=== PATIENT | female | born 1960 | race African-American/Black ===

== ENCOUNTER 2019-06-26 15:30 | Emergency (ER) | payer MEDICAID ==
[~2019-06-26] VITALS: Ht 157.5 cm; Wt 97.5 kg
--- NOTE | 2019-06-26 15:45 | NUR ---
patient came in to the er c/o "Have something on R side of head started tuesday NOT going away". On room air, breathing evenly and unlabored. connected to the monitor and pulse ox. Kept comfortable, will continue to monitor accordingly.
[2019-06-26] MEDS ORDERED: LABETALOL 20 MG/4 ML VIAL IV ONE (16:00)
[2019-06-26] MEDS ORDERED: LABETALOL HCL IV 100MG VIAL ONE (16:08)
[2019-06-26] MEDS ORDERED: OMEP20TA5 PO (16:08)
[2019-06-26 16:11] LABS: BASOPHILS # (AUTO) 0.1 /CMM (0.0-0.2); BASOPHILS % (AUTO) 0.6 % (0.0-2.0); EOSINOPHILS % (AUTO) 1.2 % (0.0-6.0); HEMATOCRIT 35 % (33-45); HEMOGLOBIN 11.5 g/dL (11.5-14.8); LYMPHOCYTES # (AUTO) 1.7 /CMM (0.8-4.8); LYMPHOCYTES % (AUTO) 13.5 % (20.0-44.0); MEAN CORPUSCULAR HGB CONC 33 g/dl (31.0-36.0); MEAN CORPUSCULAR VOLUME 85 fL (82-100); MONOCYTES # (AUTO) 0.8 /CMM (0.1-1.30); MONOCYTES % (AUTO) 6.7 % (2.0-12.0); NEUTROPHILS # (AUTO) 9.9 /CMM (1.8-8.9); PLATELET COUNT (AUTO) 216 /CMM (150-450); RED BLOOD CELL COUNT(AUTO) 4.15 MIL/uL (4.0-5.2); WHITE BLOOD COUNT (AUTO) 12.7 K/uL (4.3-11.0)
[2019-06-26 16:18] LABS: CALCIUM, SERUM 8.8 mg/dL (8.5-10.1); CREATININE 0.6 mg/dL (0.6-1.3); POTASSIUM 4.2 mmol/L (3.5-5.1)
[2019-06-26] MEDS ORDERED: IOHEXOL-350 100 ML VIAL IV ONE (17:14)
[2019-06-26] MEDS ORDERED: CT SWABBABLE VALVE TRANS SET 1 EA INFUS.SET MC ONE (17:15)
[2019-06-26] MEDS ORDERED: IV NS 0.9% 250 ML IV ONE (17:15)
[2019-06-26] MEDS ORDERED: IBUPROFEN 600 MG TABLET PO ONE (18:30)
[2019-06-26 18:38] VITALS: BP 140/81
--- NOTE | 2019-06-26 18:39 | NUR ---
Patient discharged to home in stable condition. Written and verbal after care instructions given. Patient verbalizes understanding of instruction.IV removed. Catheter intact and site benign. Pressure and 4x4 applied to site. No bleeding noted.
== END 2019-06-26 18:39 | disposition home or self-care (01) ==
LOC: ER 15:37
DX: R51 Headache (principal); R42 Dizziness and giddiness; I51.7 Cardiomegaly; K21.9 Gastro-esophageal reflux disease without esophagitis; Z60.2 Problems related to living alone; Z79.899 Other long term (current) drug therapy
CPT/HCPCS: 36415; 70450; 70496; 71045; 80048; 85025; 85730; 93005; 99285; J3490; J7050; Q9967

== ENCOUNTER 2023-02-05 14:34 | Emergency (ER) | payer MEDICAID ==
[~2023-02-05] VITALS: Ht 160 cm; Wt 108.9 kg
[~2023-02-05 14:34] MED LIST: OMEP20TA5 PO
[2023-02-05 18:09] VITALS: BP 130/84; TEMP 98; O2SAT 98
== END 2023-02-05 18:00 | disposition home or self-care (01) ==
LOC: ER 14:34
DX: S83.92XA Sprain of unspecified site of left knee, initial encounter (principal); K21.9 Gastro-esophageal reflux disease without esophagitis; Z60.2 Problems related to living alone; X58.XXXA Exposure to other specified factors, initial encounter; Y93.89 Activity, other specified; Y92.89 Other specified places as the place of occurrence of the external cause; Y99.8 Other external cause status
CPT/HCPCS: 73564-TC

== ENCOUNTER 2025-01-24 09:17 | Emergency (ER) | payer BC, MEDICAID ==
[~2025-01-24] VITALS: Ht 160 cm; Wt 108.9 kg
[2025-01-24 09:30] VITALS: BP 171/108; TEMP 98.3; O2SAT 95
[2025-01-24] MEDS ORDERED: SULF1TAB48 PO (09:45)
== END 2025-01-24 09:50 | disposition home or self-care (01) ==
LOC: ER 09:26
DX: L03.312 Cellulitis of back [any part except buttock and flank] (principal); Z87.01 Personal history of pneumonia (recurrent)